=== PATIENT | male | born 1960 | race Caucasian/White ===

== ENCOUNTER 2018-04-08 13:46 | Emergency (ER) | payer OTHER ==
--- NOTE | 2018-04-08 15:37 | ED Physician Documentation ---
PD HPI LOWER EXT INJURY - Stated complaint Stated Complaint: FOOT SWOLLEN TURNING BLACK - Chief complaint Chief Complaint: Ext Problem - History obtained from History obtained from: Patient - History of Present Illness PD HPI LOW EXT INJURY LOCATION: Left, Foot Type of injury: No: Fall, Twist Timing - onset: How many days ago (3) Timing - details: Gradual onset Improved by: Rest Worsened by: Moving, Palpating Associated symptoms: Swelling, Discolored (redness dorsum distal foot.). No: Weakness, Numbness Similar symptoms before: Has not had sx before (has had gout in great toe, not at this spot in foot. Noted some bruising or dark color under the toes/MTP area of /3rd.) Recently seen: Not recently seen Review of Systems Constitutional: denies: Fever, Chills, Myalgias Neurologic: denies: Focal weakness, Numbness Immunocompromised: denies: Immunocompromised PD PAST MEDICAL HISTORY - Past Medical History Musculoskeletal: Gout - Present Medications Home Medications: Ambulatory Orders Medication Instructions Recorded Confirmed Aspirin 81 mg PO 04/08/18 Cephalexin [Keflex] 500 mg PO Q6H #28 capsule 04/08/18 Dexamethasone [Decadron] 4 mg PO DAILY #5 tablet 04/08/18 Indomethacin 25 mg PO 04/08/18 Levothyroxine Sodium [Synthroid] 75 mcg PO 04/08/18 Rosuvastatin Calcium [Crestor] 10 mg PO 04/08/18 Tramadol HCl 50 mg PO Q6H PRN #15 tablet 04/08/18 - Allergies Allergies/Adverse Reactions: Allergies Allergy/AdvReac Type Severity Reaction Status Date / Time No Known Drug Allergies Allergy Verified 04/08/18 14:02 PD ED PE NORMAL - Vitals Vital signs reviewed: Yes - General General: Alert and oriented X 3, No acute distress, Well developed/nourished - Derm Derm: Normal color, Warm and dry, Other (dorsum distal left foot with redness, swelling and tenderness. No skin lesions/sores seen. Faint bruising color plantar area 2/3 MT head areas but not tender. Good pulses, color and cap refill) Results - Vitals Vitals: Oxygen O2 Source Room air PD MEDICAL DECISION MAKING - ED course Complexity details: considered differential (redness and swelling/tender dorsum foot distally. History of gout but not in this area. No skin lesions per se. consider gout vs cellulitis. ), d/w patient, d/w family Departure - Departure Disposition: 01 Home, Self Care Clinical Impression: Swelling of left foot, Cellulitis of foot, Exacerbation of gout Condition: Stable Record reviewed to determine appropriate education?: Yes Instructions: ED Infec Skin Cellulitis Follow-Up: XENIA ODOM PA-C [Primary Care Provider] - Prescriptions: Cephalexin [Keflex] 500 mg PO Q6H #28 capsule Dexamethasone [Decadron] 4 mg PO DAILY #5 tablet Tramadol HCl 50 mg PO Q6H PRN #15 tablet PRN Reason: Pain Comments: Your x-ray appears normal. The redness and swelling can be consistent with a skin infection called cellulitis. Will treat with an antibiotic for that possibility. It may also be a different version an area of gout than you have had before so you can use your indomethacin and will add to that Decadron and tramadol for pain if needed. Recheck if not improved over the next few days. Discharge Date/Time: 04/08/18 17:02
[2018-04-08] MEDS ORDERED: ACETAMINOPHEN 325 MG TABLET PO STA (15:59)
[2018-04-08] MEDS ORDERED: traMADol 50 MG TABLET PO STA (15:59)
[2018-04-08] MEDS ORDERED: DEXAMETHASONE 10 MG/ML VIAL PO STA (15:59)
[2018-04-08] MEDS ORDERED: CHERRY SYRUP 10 ML UDC PO ONE (16:07)
[2018-04-08] MEDS ORDERED: cephALEXin 250 MG CAPSULE PO STA (16:40)
--- NOTE | 2018-04-08 16:51 | XRAY Report ---
Reason: left foot pain and swelling over few days Procedure Date: 04/08/2018 Accession Number: [id number] / [id number] Procedure: XR - Foot 3 View LT CPT Code: FULL RESULT: EXAM: LEFT FOOT RADIOGRAPHY EXAM DATE: 04/08/2018 04:10 PM. CLINICAL HISTORY: Left foot pain and swelling over few days. COMPARISON: None. TECHNIQUE: 3 views. FINDINGS: Bones: Normal. No fractures or bone lesions. Joints: Normal. No subluxations. Soft Tissues: There is dorsal soft tissue swelling at the distal metatarsals. IMPRESSION: No fracture or subluxation. [facility]
[2018-04-08 17:02] VITALS: BP 136/93
== END 2018-04-08 17:02 | disposition home or self-care (01) ==
LOC: ED 13:46
DX: R22.9 Localized swelling, mass and lump, unspecified (principal); L03.116 Cellulitis of left lower limb; M10.9 Gout, unspecified; Z79.82 Long term (current) use of aspirin
CPT/HCPCS: 73630; 99283; A9270